=== PATIENT | female | born 1965 | race Asian ===

== ENCOUNTER 2022-02-17 15:49 | Emergency (ER) | payer OTHER ==
[~2022-02-17] VITALS: Ht 162.6 cm; Wt 68.5 kg
[2022-02-17 16:03] VITALS: BP 161/108
[2022-02-17 16:34] LABS: BASOPHILS % (AUTO) 0.2 % (0.0-2.0); EOSINOPHILS # (AUTO) 0.1 K/uL (0-0.4); EOSINOPHILS % (AUTO) 0.7 % (0.0-4.0); HEMATOCRIT 42.9 % (36-48); LYMPHOCYTES # (AUTO) 0.7 K/uL (2.5-16.5); LYMPHOCYTES % (AUTO) 7.8 % (20.5-51.1); MEAN CORPUSCULAR HEMOGLOBIN 29 pg (27-31); MEAN CORPUSCULAR HGB CONC 33 g/dL (33-37); MEAN CORPUSCULAR VOLUME 87.8 fL (80-94); MONOCYTES # (AUTO) 0.3 K/uL (0.8-1.0); MONOCYTES % (AUTO) 3.4 % (1.7-9.3); NEUTROPHILS # (AUTO) 7.6 K/uL (1.8-7.7); NEUTROPHILS % (AUTO) 87.9 % (42.2-75.2); PLATELET COUNT (AUTO) 228 K/uL (140-450); RED BLOOD CELL COUNT(AUTO) 4.88 MIL/uL (4.20-5.40); RED CELL DISTRIBUTION WIDTH 13.5 % (11.6-13.7); WHITE BLOOD COUNT (AUTO) 8.6 K/uL (4.8-10.8)
[2022-02-17 16:41] LABS: APPEARANCE,URINE CLEAR (CLEAR); BILIRUBIN,URINE NEGATIVE (NEGATIVE); BLOOD, URINE 1+ (NEGATIVE); COLOR,URINE YELLOW (YELLOW); LEUKOCYTE ESTERASE ,URINE NEGATIVE (NEGATIVE); NITRITE, URINE NEGATIVE (NEGATIVE); UGLUCOSE NEGATIVE (NEGATIVE)
--- NOTE | 2022-02-17 16:46 | NUR ---
AMBULATED TO BED 12.
--- NOTE | 2022-02-17 16:46 | NUR ---
WALKED IN C/O LEFT FLANK PAIN ONSET 3 DAYS AGO. DENIES TRAUMA OR FALL. STATES NAUSEA AND VOMITING. DENIES ANY URINARY S/SX. STATES BLOOD IN STOOL. DENIES FEVER OR CHILLS. AAOX4, AMBULATORY. VITALS STABLE. BLOOD AND URINE COLLECTED.
[2022-02-17 16:49] LABS: ALBUMIN 4.1 g/dL (3.4-5.0); CARBON DIOXIDE 26.9 mmol/L (21-32); CREATININE 1.1 mg/dL (0.6-1.3); POTASSIUM 3.9 mmol/L (3.5-5.1); TOTAL BILIRUBIN 0.6 mg/dL (0.0-1.0)
[2022-02-17 16:56] LABS: OTHER CASTS, URINE None Seen /LPF (None Seen); RBC,URINE 0-5 /HPF (0-5); WBC,URINE 0-5 /HPF (0-5)
[2022-02-17] MEDS ORDERED: ONDANSETRON 4 MG/2 ML VIAL IVP ONE (17:20)
[2022-02-17] MEDS ORDERED: KETOROLAC 30 MG/ML VIAL IVP ONE (17:20)
[2022-02-17] MEDS ORDERED: NACL 0.9% 1,000 ML IV ONE (17:20)
--- NOTE | 2022-02-17 17:38 | NUR ---
PT WENT FOR CT
[2022-02-17] MEDS ORDERED: TAMS0.4C96 PO (18:43)
[2022-02-17] MEDS ORDERED: ACET-5629 PO (18:43)
[2022-02-17] MEDS ORDERED: IBUP-2213 PO (18:43)
[2022-02-17] MEDS ORDERED: HYDROcodone/APAP 7.5/325 MG 1 TAB PO ONE (18:45)
[2022-02-17 19:10] VITALS: BP 145/66
--- NOTE | 2022-02-17 19:10 | NUR ---
Patient discharged with v/s stable. Written and verbal after care instructions given and explained. Patient alert, oriented and verbalized understanding of instructions. Ambulatory with steady gait. All questions addressed prior to discharge. ID band removed. Patient advised to follow up with PMD. Rx of PERCOCET, IBUPROFEN AND FLOMAX given. Patient educated on indication of medication including possible reaction and side effects. Opportunity to ask questions provided and answered.
== END 2022-02-17 19:10 | disposition home or self-care (01) ==
LOC: MED 15:49
DX: N20.0 Calculus of kidney (principal); I10 Essential (primary) hypertension
CPT/HCPCS: 36415; 74176; 80053; 81001; 81025; 83690; 85025; 96361; 96374; 96375; 99284; J1885; J2405; J7030